=== PATIENT | female | born 1940 | race Hispanic/Latino ===

== ENCOUNTER 2017-07-05 10:48 | Outpatient (CLI) | payer MEDICARE, OTHER ==
--- NOTE | 2017-07-08 08:44 | Magnetic Resonance Report ---
MR scan of the cranium was performed without contrast. Pulse sequences included: 1. T1 weighted sagittal and axial images without contrast 2. T2 weighted axial and coronal images 3. FLAIR axial images 4. Diffusion-weighted axial images 5. Apparent diffusion coefficient images Views of the posterior fossa showed a normal craniocervical junction. Cerebellar pontine angles were normal with normal seventh-eighth nerve complexes. Brainstem and cerebellum were normal. The ventricular system showed mild dilatation but no distortion. Images of the hemispheres showed no areas of increased or decreased signal. Mild cortical atrophy was seen as was minimal white matter changes. Some enlargement of the Sylvian fissures was noted. Some enlargement of the frontal subdural spaces was also seen. Flow voids in the [place], orbits, pituitary and basal ganglia were normal. Some fluid was seen in the right maxillary sinus. Impression: Minimally abnormal MR scan of the cranium without contrast. 1. minimal white matter araiosis 2. mild ventricular dilation 3. mild atrophy All of the above is not unusual for age
== END 2017-07-05 10:49 | disposition home or self-care (01) ==
LOC: SPVIMAG 10:48
PROVIDERS: ATTEND Specialist
DX: G31.89 Other specified degenerative diseases of nervous system (principal); F03.90 Unspecified dementia, unspecified severity, without behavioral disturbance, psychotic disturbance, mood disturbance, and anxiety; R41.1 Anterograde amnesia
CPT/HCPCS: 70551